=== PATIENT | male | born 1995 | race Two or more races ===

== ENCOUNTER 2016-04-20 09:45 | Emergency (ER) | payer OTHER ==
[2016-04-20 10:06] VITALS: BP 122/84; PULSE 66; RESP 16; TEMP 98.2; O2SAT 96
--- NOTE | 2016-04-20 10:11 | UCPHY ---
H & P Patient Type: New Chief Complaint Nursing Narrative: lower back pain for 1 day Time Seen by Provider: 04/20/16 10:07 HPI/ROS: Chief complaint: Low back pain HPI: Patient was playing basketball yesterday evening when he went for a jump in twisted felt a pull in his back. He has been having back pain and spasm since that time. He has been ambulating with some discomfort but no numbness or weakness. No difficulty urinating. Has had some prior back injuries in the past and might have some lumbar disc disease per his chiropractor. No fevers or chills. No nausea or vomiting. No abdominal pain. He took 800 mg of ibuprofen with minimal relief. ROS: 10 point Review of Systems is negative except as noted in the HPI. Physical exam: General: Awake, alert, no acute distress Back: No midline tenderness. Mild bilateral paraspinal tooth spasm with minimal tenderness. Decreased range of motion secondary to spasm and pain. Lower extremities: Full flexion extension strength. Sensations intact in all dermatomes. Neuro: Cranial nerves 2-12 intact. He has 2+ deep tendon reflexes by pallor bilateral patellar. Toes are downgoing. Sensations intact. - Personal History Current Tetanus Diphtheria and Acellular Pertussis (TDAP): Yes Tetanus Vaccine Date: 2013 - Medical/Surgical History Hx Asthma: No Hx Chronic Respiratory Disease: No Hx Diabetes: No Hx Cardiac Disease: No Hx Renal Disease: No Hx Cirrhosis: No Hx Alcoholism: No Hx HIV/AIDS: No Hx Splenectomy or Spleen Trauma: No Other PMH: denies - Family History Significant Family History: No pertinent family hx - Social History Smoking Status: Never smoked Constitutional: Initial Vital Signs Temperature (C) 36.8 C 04/20/16 10:02 Heart Rate 66 04/20/16 10:02 Respiratory Rate 16 04/20/16 10:02 Blood Pressure 122/84 H 04/20/16 10:02 O2 Sat (%) 96 04/20/16 10:02 O2 Delivery Mode Room Air Allergies/Adverse Reactions: No Known Allergies Allergy (Unverified 04/20/16 10:01) Home Medications: Medication Instructions Recorded Hydrocodone/Acetaminophen 1 - 2 each PO Q4-6PRN PRN #10 04/20/16 [Hydrocodon-Acetaminophen 5-325] tablet Departure - Departure Clinical Impression: Lumbar strain Instructions: Low Back Strain (ED), Lower Back Exercises (ED) Additional Instructions: May take 800 mg of ibuprofen every 8 hours as an anti-inflammatory. May take acetaminophen in addition to the ibuprofen as needed. You may given hydrocodone to go home with to help you for the next couple of days. Do not take this past 2 days. Apply ice to her back for 15 minutes of every hour while awake. Follow up with primary care physician in about a week if symptoms are not improving. Referrals: NONE *PRIMARY CARE P,. [Primary Care Provider] - As per Instructions Dominick Hope [Doctor of Osteopathy] - As per Instructions Prescriptions: Hydrocodone/Acetaminophen [Hydrocodon-Acetaminophen 5-325] 1 - 2 each PO Q4- 6PRN PRN #10 tablet PRN Reason: Pain, Severe - PQRS PQRS Measurement: NA
== END 2016-04-20 10:24 | disposition home or self-care (01) ==
LOC: CED 09:45
DX: S39.012A Strain of muscle, fascia and tendon of lower back, initial encounter (principal); Y93.67 Activity, basketball
CPT/HCPCS: G0463-PO